=== PATIENT | female | born 1965 | race Caucasian/White ===

== ENCOUNTER 2019-01-08 09:39 | Emergency (ER) | payer OTHER ==
[~2019-01-08] VITALS: Ht 154.9 cm; Wt 59.9 kg
[~2019-01-08 09:39] MED LIST: NITR100C15 PO; UNKNOWN BP MEDS; [UNRECOGNIZED DRUG - REMARK]
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
[2019-01-08 10:03] LABS: BASOPHILS % (AUTO) 0.4 % (0.0-2.0); HEMATOCRIT 43 % (33-45); HEMOGLOBIN 14.9 g/dL (11.5-14.8); LYMPHOCYTES # (AUTO) 4.4 /CMM (0.8-4.8); LYMPHOCYTES % (AUTO) 58.7 % (20.0-44.0); MEAN CORPUSCULAR HGB CONC 34 g/dl (31.0-36.0); MEAN CORPUSCULAR VOLUME 98 fL (82-100); MONOCYTES # (AUTO) 0.6 /CMM (0.1-1.30); MONOCYTES % (AUTO) 7.7 % (2.0-12.0); NEUTROPHILS # (AUTO) 2.5 /CMM (1.8-8.9); NEUTROPHILS % (AUTO) 33.2 % (43.0-81.0); PLATELET COUNT (AUTO) 143 /CMM (150-450); RED BLOOD CELL COUNT(AUTO) 4.42 MIL/uL (4.0-5.2); WHITE BLOOD COUNT (AUTO) 7.4 K/uL (4.3-11.0)
--- NOTE | 2019-01-08 10:06 | NUR ---
DR LEE AT BEDSIDE FOR EVAL
[2019-01-08 10:10] LABS: CALCIUM, SERUM 8.3 mg/dL (8.5-10.1); CARBON DIOXIDE 23 mmol/L (21-32); CHLORIDE 102 mmol/L (98-107); CREATININE 0.6 mg/dL (0.6-1.3); GLUCOSE 96 mg/dL (74-106); POTASSIUM 3.8 mmol/L (3.5-5.1); SODIUM SERUM 139 mmol/L (136-145); UREA NITROGEN, BLOOD 10 mg/dL (7-18)
[2019-01-08 10:25] LABS: ALANINE AMINOTRANSFERASE 89 U/L (12-78); ALCOHOL, BLOOD 457 mg/dL (0-0); ALKALINE PHOSPHATASE 113 U/L (46-116); ASPARTATE AMINOTRANSFERASE 77 U/L (15-37); BILIRUBIN,DIRECT 0.1 mg/dL (0.0-0.2); BILIRUBIN,TOTAL 0.4 mg/dL (0.2-1.0); TOTAL PROTEIN, SERUM 8.6 g/dL (6.4-8.2)
[2019-01-08 10:26] LABS: ACETAMINOPHEN < 2 ug/ml (10-30); SALICYLATE 2.5 mg/dL (2.8-20.0)
[2019-01-08 10:32] LABS: APPEARANCE,URINE Clear (CLEAR); BILIRUBIN,URINE Negative (NEGATIVE); BLOOD, URINE Trace-lysed Ery/uL (NEGATIVE); COLOR,URINE Yellow (YELLOW); KETONES,URINE Negative (NEGATIVE); LEUKOCYTE ESTERASE ,URINE Trace (NEGATIVE); NITRITE, URINE Negative (NEGATIVE); PROTEIN,URINE 100 mg/dl (NEGATIVE); UGLUCOSE Negative (NEGATIVE); UROBILINOGEN,URINE 0.2 EU/dL (0.2)
[2019-01-08 11:03] LABS: BACTERIA,URINE Few /HPF (None Seen); SQUAMOUS EPITHELIAL CELL,UR Few /HPF (None Seen)
--- NOTE | 2019-01-08 12:05 | NUR ---
PT SLEEPING IN BED. ON MONITOR W/ STABLE VITALS. WILL CONTINUE TO MONITOR.
--- NOTE | 2019-01-08 20:55 | NUR ---
asleep;no acute events - reported; awaiting for social serbives for homeless care home referral
--- NOTE | 2019-01-09 06:25 | NUR ---
PT PROVIDED WITH SANDWICH AND JUICE
--- NOTE | 2019-01-09 09:41 | NUR ---
Anali, social media executive at bedside for eval
--- NOTE | 2019-01-09 11:00 | NUR ---
PT. VERBALIZED UNDERSTANDING OF AFTERCARE INSTRUCTIONS.Patient discharged to facility home in stable condition. Written and verbal after care instructions given. Patient verbalizes understanding of instruction. Taxi jessenia
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
[2019-01-09 14:22] VITALS: BP 118/65
== END 2019-01-09 14:23 | disposition home or self-care (01) ==
LOC: ER 09:45
DX: R45.851 Suicidal ideations (principal); I10 Essential (primary) hypertension; Z87.440 Personal history of urinary (tract) infections
CPT/HCPCS: 36415; 80048; 80076; 80305; 80307; 80329; 81001; 85025; 99284; G0480; 81000-TC